=== PATIENT | male | born 1995 | race American Indian/Alaskan Native ===

== ENCOUNTER 2017-03-25 13:07 | Emergency (ER) | payer OTHER ==
[~2017-03-25] VITALS: Ht 157.5 cm; Wt 72.6 kg
[~2017-03-25 13:07] MED LIST: BACTRIM DS TAB1 EACH PO; KEFLEX500 MG PO; LIDODERM 5%1 PATC1 TRANSDERM; NOHOMEMEDICATIONS; NORCO 5-325 TA1 EACH PO; ULTRAM 50MG TAB50 MG PO
[2017-03-25] MEDS ORDERED: NAPROSYN500 MG PO (13:13)
[2017-03-25] MEDS ORDERED: IBUPROFEN 200200 M1 PO (13:20)
[2017-03-25 14:32] VITALS: BP 125/77
== END 2017-03-25 14:17 | disposition home or self-care (01) ==
LOC: ER 13:07
DX: M25.562 Pain in left knee (principal); M54.32 Sciatica, left side; F17.210 Nicotine dependence, cigarettes, uncomplicated; W18.39XA Other fall on same level, initial encounter; Y93.89 Activity, other specified; Y92.89 Other specified places as the place of occurrence of the external cause; Y99.8 Other external cause status